=== PATIENT | female | born 1995 ===

== ENCOUNTER 2023-03-04 08:50 | Inpatient (IN) | payer OTHER ==
[~2023-03-04] VITALS: Ht 165.1 cm; Wt 96.2 kg
[2023-03-05] MEDS ORDERED: IRON PO (09:18)
[2023-03-11] MEDS ORDERED: FEXOFENADINE H180 MG (11:20)
[2023-03-11] MEDS ORDERED: MONTELUKAST SOD10 MG (11:20)
[2023-03-11] MEDS ORDERED: CRYSELLE-28 TA1 EACH (11:20)
[2023-03-11] MEDS ORDERED: FLONASE16 GM (11:20)
[2023-03-12] MEDS ORDERED: COLACE100 MG PO (08:32)
[2023-03-12] MEDS ORDERED: IBU800 MG PO (08:32)
[2023-03-12] MEDS ORDERED: SIMETHICONE80 MG PO (08:32)
[2023-03-12] MEDS ORDERED: PERCOCET 5-3251 EACH PO (08:32)
== END 2023-03-12 11:33 | disposition home or self-care (01) | DRG 743 ==
LOC: O/R 03-11 06:27 → SURH 03-11 08:00 → OB/GYN 03-11 17:45 → SURH 03-11 20:30 → OB/GYN 03-12 11:33
PROVIDERS: ADMIT Student in an Organized Health Care Education/Training Program; ATTEND Student in an Organized Health Care Education/Training Program
PROC: 0UT74ZZ Resection of Bilateral Fallopian Tubes, Percutaneous Endoscopic Approach (ICD-10-PCS; 2023-03-11)
PROC: 0TJB8ZZ Inspection of Bladder, Via Natural or Artificial Opening Endoscopic (ICD-10-PCS; 2023-03-11)
PROC: 0UT94ZZ Resection of Uterus, Percutaneous Endoscopic Approach (ICD-10-PCS; principal; 2023-03-11 20:30)
DX: D25.1 Intramural leiomyoma of uterus (principal); D25.0 Submucous leiomyoma of uterus; D25.2 Subserosal leiomyoma of uterus; Z20.822 Contact with and (suspected) exposure to COVID-19; N72 Inflammatory disease of cervix uteri